=== PATIENT | female | born 1985 | race Hispanic/Latino ===

== ENCOUNTER 2018-01-12 18:06 | Emergency (ER) | payer BC ==
[2018-01-12] MEDS ORDERED: Ondansetron HCl/PF 4 MG/2 ML Vial ONE (19:11)
[2018-01-12 19:19] LABS: #Basophils 0.1 thou/uL (0.0-0.2); #Eosinphils 0.2 thou/uL (0.0-0.7); #Lymphocytes 2.1 thou/uL (1.20-3.40); #Monocytes 0.6 thou/uL (0.11-0.59); #Neutrophils 9.6 thou/uL (1.40-6.50); %Basophils 0.5 % (0.0-1.0); %Eosinophils 1.5 % (0.0-10.0); %Lymphocytes 16.8 % (21.0-51.0); %Monocytes 4.5 % (0.0-10.0); %Neutrophils 76.7 % (42.0-75.0); Mean Corpuscular HGB CONC 33.9 g/dL (32.0-36.0); Mean Corpuscular Hemoglobin 29.4 pg (27.0-31.0); Mean Corpuscular Volume 86.8 fL (78.0-98.0); Mean Platelet Volume 10.3 fL (7.4-10.4); Platelet Count 217 thou/uL (130-400); RBC Distribution Width 12.8 % (11.5-14.5); Red Blood Cell (RBC) Count 4.75 mill/uL (4.20-5.40); White Blood Cell (WBC) Count 12.5 thou/uL (4.8-10.8)
[2018-01-12 19:56] LABS: ALT (SGPT) 49 U/L (8-55); AST (SGOT) 78 U/L (5-34); Albumin 4.1 g/dL (3.5-5.0); Alkaline Phosphatase 81 U/L (40-150); Anion Gap 16 mmol/L (10-20); BUN (Urea Nitrogen) 15 mg/dL (7.0-18.7); Bilirubin, Total 0.6 mg/dL (0.2-1.2); Calc. Creatinine Clearance 0 mL/min (70-130); Calcium 9.6 mg/dL (7.8-10.44); Carbon Dioxide 16 mmol/L (22-29); Chloride 111 mmol/L (98-107); Estimated GFR-MDRD Greater than 90; Globulin 3.6 g/dL (2.4-3.5); Glucose 86 mg/dL (70-105); Potassium 4.8 mmol/L (3.5-5.1); Protein, Total 7.8 g/dL (6.0-8.3); Sodium 138 mmol/L (136-145)
--- NOTE | 2018-01-12 20:33 | ULT ---
ULTRASOUND GALLBLADDER RIGHT UPPER QUADRANT: HISTORY: Abdominal pain. COMPARISON: None. TECHNIQUE: Real-time, ugardado-scale, and color evaluation of the abdomen was performed. FINDINGS: The pancreas is not well seen. Hepatic echotexture is mildly increased. A gallstone is present within the gallbladder. No pericholecystic fluid. Gallbladder wall thickness is normal. The common bile duct is dilated to 9 mm. The right kidney measures 10.5 x 4.2 x 5.5 cm. IMPRESSION: Dilated common bile duct with cholelithiasis. Distal obstructing calculus is definitely a possibilit y. ERCP or MRCP recommended. POS: [facility]
== END 2018-01-12 21:42 | disposition home or self-care (01) ==
LOC: ERS 18:06
DX: K80.50 Calculus of bile duct without cholangitis or cholecystitis without obstruction (principal)
CPT/HCPCS: 76705; 80053; 83690; 85025; 96374; 96375; J2270; J2405

== ENCOUNTER 2018-01-15 00:56 | Inpatient (IN) | payer BC ==
[2018-01-15] MEDS ORDERED: Ondansetron HCl/PF 4 MG/2 ML Vial ONE ×2 (01:48→10:02)
[2018-01-15] MEDS ORDERED: Morphine 4 MG/ML VIAL ONE (01:48)
[2018-01-15 01:55] LABS: #Eosinphils 0.2 thou/uL (0.0-0.7); #Lymphocytes 1.7 thou/uL (1.20-3.40); #Monocytes 0.4 thou/uL (0.11-0.59); #Neutrophils 4.5 thou/uL (1.40-6.50); %Basophils 0.5 % (0.0-1.0); %Eosinophils 3.3 % (0.0-10.0); %Lymphocytes 25.1 % (21.0-51.0); %Monocytes 5.4 % (0.0-10.0); %Neutrophils 65.7 % (42.0-75.0); Hemoglobin 14.3 g/dL (12.0-16.0); Mean Corpuscular HGB CONC 32.9 g/dL (32.0-36.0); Mean Corpuscular Volume 88.2 fL (78.0-98.0); Mean Platelet Volume 9.4 fL (7.4-10.4); Platelet Count 199 thou/uL (130-400); RBC Distribution Width 12.5 % (11.5-14.5); Red Blood Cell (RBC) Count 4.92 mill/uL (4.20-5.40); White Blood Cell (WBC) Count 6.8 thou/uL (4.8-10.8)
[2018-01-15 02:15] LABS: BHCG - Serum Negative (NEGATIVE); Pregs Control Background? CLEAR/WHITE (CLR/WHITE); Pregs Control Bar Appear? YES (CONTROL BAR)
[2018-01-15 02:26] LABS: ALT (SGPT) 303 U/L (8-55); AST (SGOT) 196 U/L (5-34); Albumin 4.2 g/dL (3.5-5.0); Alkaline Phosphatase 243 U/L (40-150); Anion Gap 12 mmol/L (10-20); BUN (Urea Nitrogen) 9 mg/dL (7.0-18.7); Bilirubin, Total 2.8 mg/dL (0.2-1.2); Calc. Creatinine Clearance 0 mL/min (70-130); Calcium 9.4 mg/dL (7.8-10.44); Carbon Dioxide 24 mmol/L (22-29); Chloride 105 mmol/L (98-107); Estimated GFR-MDRD Greater than 90; Globulin 3.4 g/dL (2.4-3.5); Glucose 104 mg/dL (70-105); Lipase 15 U/L (8-78); Potassium 3.7 mmol/L (3.5-5.1); Protein, Total 7.6 g/dL (6.0-8.3); Sodium 137 mmol/L (136-145)
[2018-01-15 03:09] LABS: Bilirubin Small (Negative); Blood, Urine Negative (Negative); Clarity CLOUDY (Clear); Glucose, Urine (Dipstick) Negative (Negative); Leukocyte Moderate (Negative); Nitrite Negative (Negative); Protein, Urine (Dipstick) Negative (Neg-Trace); Specific Gravity, Urine 1.015 (1.002-1.036); pH, Urine 6.5 (5.0-9.0)
[2018-01-15 03:11] LABS: Bacteria/HPF 1+ HPF (None Seen); Hyaline Casts/LPF 4-6 HYALINE CAST LPF (0-3 Hyaline); Pathc Cast-AUWi Flag 1.45 (0-2.49); RBC/HPF 0-3 HPF (0-3)
[2018-01-15] MEDS ORDERED: MEROPENEM 1 GM/50 ML 1 GM in Premix Bag 1 BAG IVPB SCH ×2 (04:00→12:00)
[2018-01-15] MEDS ORDERED: Morphine 4 MG/ML VIAL SLOW IVP PRN ×2 (05:09→16:54)
[2018-01-15] MEDS ORDERED: Ondansetron ODT 4 MG TAB SL PRN (05:09)
[2018-01-15] MEDS ORDERED: Ondansetron HCl/PF 4 MG/2 ML Vial IVP PRN ×2 (05:09→15:28)
[2018-01-15 05:12] VITALS: BMI 39.8
[2018-01-15] MEDS ORDERED: D5 1/2 NS w/20 mEq KCL 1,000 ML IV SCH (05:15)
[2018-01-15 08:06] LABS: ALT (SGPT) 300 U/L (8-55); AST (SGOT) 193 U/L (5-34); Albumin 4.1 g/dL (3.5-5.0); Alkaline Phosphatase 241 U/L (40-150); Bilirubin, Total 2.8 mg/dL (0.2-1.2); Protein, Total 7.6 g/dL (6.0-8.3)
--- NOTE | 2018-01-15 08:28 | ULT ---
PRELIMINARY REPORT/[facility]/EMERGENCY AFTER HOURS PROCEDURE: EXAM: US Abdomen Limited, Right Upper Quadrant CLINICAL HISTORY: 32 years old, female; Pain and signs and symptoms; Nausea; Abdominal pain; Localized; Right upper nicole drant (ruq); Patient HX: Ruq pain worse today; TECHNIQUE: Real-time ultrasound of the right upper quadrant with image documentation. COMPARISON: No relevant prior studies available. FINDINGS: Several shadowing gallstones within the gallbladder. There also appears to be some biliary sludge in the gallbladder. The gallbladder appears mildly distended, transverse diameter up to about 4 cm. Gallbladder wall thickness upper range of normal, approximately 3 mm. No definite pericholecystic fluid. Technologist states patient is tender over the gallbladder region during scanning. Moderate biliary tree dilation, with common duct measuring up to 13-14 mm. No visible common duct stone by ultrasound. Slight increased echogenicity of the liver may indicate fatty infiltration. Otherwise unremarkable liver, no focal abnormality. Visible pancreas unremarkable. Images of the right kidney show no hydronephrosis. IMPRESSION: Cholelithiasis, please see additional details above. Moderate biliary tree dilation, with common duct measuring up to 13-14 mm. Other findings discussed above. Thank you for allowing us to participate in the care of your patient. Dictated and Authenticated by: Norberto Hewitt MD 01/15/2018 2:29 AM Central Time ([place] & [place]) FINAL REPORT RIGHT UPPER QUADRANT GALLBLADDER ULTRASOUND: HISTORY: Abdominal pain. COMPARISON: Ultrasound from 01/12/2018. TECHNIQUE: Real-time, guardado-scale, and color evaluation of the abdomen was performed. FINDINGS: The pancreas is not well seen. Mildly increased hepatic echotexture. The common bile duct is dilated over a centimeter, increased from the comparison examination. The right kidney measures 11.4 x 4.6 x 4.4 cm. There is cholelithiasis. Gallbladder wall thickness is at the upper limits of normal. The gallbladder, however, is distended. IMPRESSION: Dilated common bile duct, progressive from the comparison examination, concerning for a distal obstru ctive process. ERCP or MRCP recommended. Findings and impression are concordant with the preliminary report by Tameka. POS: [facility]
--- NOTE | 2018-01-15 09:46 | HP ---
CHIEF COMPLAINT: Right upper quadrant pain. HISTORY OF PRESENT ILLNESS: This is a 32-year-old female who since Saturday has been experiencing righ t upper quadrant pain, radiating to back, associated with nausea, no vomiting. She had a similar epi sode a month ago. She denies dark urine, no fever. She says she is feeling better this morning. PAST MEDICAL HISTORY: Obesity. PAST SURGICAL HISTORY: None. MEDICATIONS: None. ALLERGIES: No known drug allergies. SOCIAL HISTORY: She is single. She works at [employer]. No tobacco, social alcohol. FAMILY HISTORY: Mother of kidney cancer. PHYSICAL EXAMINATION: VITAL SIGNS: Temperature 96, pulse 58, blood pressure 114/79. GENERAL: She is awake, alert, does not appear to be in any distress. HEENT: No obvious jaundice. LUNGS: Clear. HEART: Regular rate and rhythm. ABDOMEN: Obese, soft, tender in the right upper quadrant to deep palpation. EXTREMITIES: Unremarkable. LABORATORY AND X-RAY FINDINGS: White count 6.8, H&H 14 and 43, platelet count 199. Electrolytes are fine. Total bilirubin is elevated at 2.8, AST of 196, ALT of 303, alkaline phosphatase 243. HCG ne gative. Ultrasound shows some mild wall thickening, some gallstones and a sonographic Prasad. ASSESSMENT: Acute cholecystitis with possible choledocholithiasis. PLAN: Repeat liver functions. If they are coming down recommend laparoscopic cholecystectomy. If t hey are going up recommend GI consult.
[2018-01-15] MEDS ORDERED: PROPOFOL 200 MG/20 ML VIAL ONE (10:02)
[2018-01-15] MEDS ORDERED: Dexamethasone 20 MG/5 ML VIAL ONE (10:02)
[2018-01-15] MEDS ORDERED: Ketorolac Tromethamine 30 MG/ML VIAL ONE (10:02)
[2018-01-15] MEDS ORDERED: Glycopyrrolate 0.2 MG/ML 5 ML SYRINGE ONE (10:02)
--- NOTE | 2018-01-15 13:41 | PQF ---
DATE: 01-15-18 ATTN: DR. ANTHONY SAAB Please exercise your independent, professional judgment in responding to the clarification form. Clinical indicators are provided on the bottom of this form for your review Please check appropriate box(s): [ ] UTI [ x] Contaminated urine specimen without UTI [ ] Other diagnosis [ ] Unable to determine In addition, please specify: Present on Admission (POA): [x ] Yes [ ] No [ ] Unable to determine For continuity of documentation, please document condition throughout progress notes and discharge summary. Thank You. CLINICAL INDICATORS - SIGNS / SYMPTOMS / LABS URINE: 01-15-18: URINE BILIRUBIN: SMALL H URINE UROBILINOGEN: 2.0 H UR LEUKOCYTE ESTERASE: MODERATE H URINE WBC: 7-10 H UR SQUAMOUS EPITH CELLS: 7-10 H URINE BACTERIA: 1+ H TEMP: ER: 99.0 RISK FACTORS: ER: ABDOMEN TENDER, R SIDED ABDOMINAL PAIN RADIATING TO HER BACK TREATMENT: ER: MEROPENEM IV, IVF (This form is maintained as a part of the permanent medical record) 2014 [email or web address], [email or web address]. All Rights Reserved ROSA [email or web address] Office: [phone] [email or web address]
[2018-01-15] MEDS ORDERED: Sodium Chloride 0.9% 0 ML ONE ×2 (13:44→13:47)
[2018-01-15] MEDS ORDERED: Sodium Chloride 0.9% 10 ML ONE (13:45)
--- NOTE | 2018-01-15 13:57 | CON ---
DATE OF CONSULTATION: 01/15/2018 REASON FOR CONSULTATION: Possible choledocholithiasis. HISTORY: Mrs. Castillo is a 32-year-old female who developed severe upper abdominal pain for the last 3 days. The patient presented to the ER 2 days ago with ultrasound demonstrating cholelithiasis. At t hat time her LFTs were fairly unremarkable. Common bile duct measured 9 mm on ultrasound. The patie nt represented back to the ER with worsening of pain. At this time, her LFTs were elevated. The pat ient denies any jaundice or dark urine. She is otherwise healthy without any antecedent GI problem o r history. PAST MEDICAL HISTORY: None. PAST SURGICAL HISTORY: None. HOME MEDICATIONS: No prescription medications. ALLERGIES: None. SOCIAL HISTORY: The patient is single, has 2 children. No tobacco or alcohol usage. FAMILY HISTORY: Negative for any known GI problem, liver disease, GI malignancy. REVIEW OF SYSTEMS: Essentially negative all 10-point review of systems. PHYSICAL EXAMINATION: VITAL SIGNS: Temperature is 98.3, blood pressure 115/77, pulse of 53. GENERAL: She is alert, conversant, in no distress. HEENT: Shows anicteric sclerae. Oropharynx clear. NECK: Supple. CARDIOVASCULAR: Shows normal S1, S2 regular rate and rhythm. CHEST: Shows normal breath sounds. ABDOMEN: Soft, protuberant, mildly tender in the medial right upper quadrant, but no guarding, tense rebound. She has active bowel sounds. No bruit. EXTREMITIES: Shows no edema. LABORATORY DATA: WBC 6.8, hemoglobin 14.3, platelet count of 199. Electrolytes within normal range, bilirubin 2.8, AST 196, ALT 303, alkaline phosphatase 243. ASSESSMENT: 1. Symptomatic cholelithiasis. 2. Possible choledocholithiasis with elevation of liver function tests and common duct measured 9 mm on ultrasound. RECOMMENDATIONS: Proceed with ERCP with possible sphincterotomy and stone extraction prior to cholec ystectomy. Indication including risks not limited to bleeding, perforation, and pancreatitis were re viewed with Ms. Castillo. All questions answered. We will proceed. PLAN: Proceed with ERCP as above.
[2018-01-15] MEDS ORDERED: Iothalamate Meglumine 60% 50 ML VIAL FS ONE (14:28)
[2018-01-15] MEDS ORDERED: Indomethacin 50 MG SUPP ONE (14:28)
[2018-01-15] MEDS ORDERED: Fentanyl 100 MCG/2 ML VIAL ONE (14:37)
[2018-01-15] MEDS ORDERED: SUGAMMADEX SODIUM 200 MG/2 ML VIAL ONE (15:21)
[2018-01-15] MEDS ORDERED: Promethazine HCl 25 MG/ML VIAL SLOW IVP PRN (15:28)
[2018-01-15] MEDS ORDERED: Promethazine HCl 25 MG/ML VIAL IM PRN (15:28)
--- NOTE | 2018-01-15 16:39 | RAD ---
FLUOROSCOPY FOR ERCP: Date: 01/15/18 COMPARISON: None. EXPOSURE: Not provided. FINDINGS/IMPRESSION: Retrograde ERCP was performed. Total of 5 images demonstrate contrast opacifying what appears to be n ormal caliber common duct. No significant reflux of contrast into the intrahepatic biliary system. Fi lling defect on single image likely represents balloon. POS: [facility]
[2018-01-15] MEDS ORDERED: Ondansetron HCl/PF 4 MG/2 ML Vial SLOW IVP PRN (16:55)
[2018-01-15] MEDS: MEROPENEM 1 GM/50 ML 1 GM in Premix Bag 1 BAG IVPB SCH (20:41)
--- NOTE | 2018-01-15 22:11 | OP ---
DATE OF PROCEDURE: 01/15/2018 PROCEDURE: Endoscopic retrograde cholangiopancreatography with sphincterotomy and stone extraction. PHYSICIAN: Kendall Bear M.D. PREMEDICATION: Given per Anesthesiology Department. PREPROCEDURE DIAGNOSES: 1. Choledocholithiasis. 2. Cholelithiasis. POSTPROCEDURE DIAGNOSIS: Choledocholithiasis, single stone extracted. PROCEDURE IN DETAIL: A written consent was obtained prior to procedure. After adequate sedation, si de view endoscope was advanced down the stomach through the pylorus into duodenum. The ampulla was v isualized and appeared normal. Selective cannulation was performed using a papillotome. The common duct was intubated. Injection of contrast showed a proximal dilation of the duct to approximately 12 mm. The distal duct tapered, but still dilated to approximately 8 mm towards the ampulla. A single oval filling defect was seen. A papillotomy was performed at 12 o'clock position with good hemostas is. A 9-12 mm balloon was then used to extract a single cholesterol stone. Occlusive cholangiogram was then performed and appeared normal. The catheter was removed. There was prompt excretion of con trast. The instrument was then fully removed. The patient tolerated the procedure well without any complication. ASSESSMENT: Choledocholithiasis, single common bile duct stone extracted after sphincterotomy. RECOMMENDATIONS: Proceed with cholecystectomy.
[2018-01-16] MEDS: MEROPENEM 1 GM/50 ML 1 GM in Premix Bag 1 BAG IVPB SCH ×3 (03:27→20:29)
[2018-01-16] MEDS ORDERED: Bupivacaine/Epinephrine 0.25% 30 ML VIAL ONE (07:32)
[2018-01-16] MEDS ORDERED: Midazolam HCl 2 mg/2 ml Vial ONE (08:05)
[2018-01-16] MEDS ORDERED: HYDROmorphone 2 MG/ML VIAL ONE (08:05)
[2018-01-16] MEDS ORDERED: Fentanyl 100 MCG/2 ML VIAL ONE ×3 (08:05→17:27)
[2018-01-16] MEDS ORDERED: diphenhydrAMINE 25 MG CAP PO PRN (08:51)
[2018-01-16] MEDS ORDERED: Naloxone HCl 0.4 mg/ml Vial IV PRN (08:51)
[2018-01-16] MEDS ORDERED: diphenhydrAMINE 50 MG/ML VIAL IVP PRN (08:51)
[2018-01-16] MEDS ORDERED: Meperidine HCl/PF 25 MG/ML VIAL SLOW IVP PRN (08:51)
[2018-01-16] MEDS ORDERED: Promethazine HCl 25 MG/ML VIAL SLOW IVP PRN (08:51)
[2018-01-16] MEDS ORDERED: Ondansetron HCl/PF 4 MG/2 ML Vial IVP PRN ×3 (08:51→09:23)
[2018-01-16] MEDS ORDERED: Promethazine HCl 25 MG/ML VIAL IM PRN ×3 (08:51→09:23)
[2018-01-16] MEDS ORDERED: Morphine Sulfate 2 MG/ML SYRINGE SLOW IVP PRN (08:51)
[2018-01-16] MEDS ORDERED: Zolpidem Tartrate 5 MG TAB PO PRN (08:51)
[2018-01-16] MEDS ORDERED: diphenhydrAMINE 50 MG/ML VIAL IM PRN (08:51)
[2018-01-16] MEDS ORDERED: Communication Order-Pharmacy FS SCH (09:00)
[2018-01-16] MEDS ORDERED: Dextrose 5% in Water 1,000 ML IV PRN (09:23)
[2018-01-16] MEDS ORDERED: hydrALAZINE 20 MG/ML VIAL SLOW IVP PRN (09:23)
[2018-01-16] MEDS ORDERED: Calcium Carbonate 500 MG ChewTAB PO PRN (09:23)
[2018-01-16] MEDS ORDERED: Dextrose 50% Abboject 50 ML SYRINGE SLOW IVP PRN (09:23)
[2018-01-16] MEDS ORDERED: HYDROcodone/Acetaminophen 10/325 mg Tablet PO PRN ×3 (09:23→10:29)
[2018-01-16] MEDS ORDERED: Mag-Al 1200 mg/1200 mg/30 ML UDCUP PO PRN (09:23)
[2018-01-16] MEDS ORDERED: Morphine 4 MG/ML VIAL SLOW IVP PRN (09:23)
--- NOTE | 2018-01-16 09:48 | OP ---
DATE OF PROCEDURE: 01/16/2018 PREOPERATIVE DIAGNOSIS: Choledocholithiasis with symptomatic cholelithiasis. SURGEON: Isak Harkins M.D. PROCEDURE PERFORMED: Laparoscopic cholecystectomy. INDICATIONS: A 32-year-old female who has been having episodic right upper quadrant pain. This cinthya me very severe. She had elevated liver function tests. She underwent an ERCP and stone extraction y day. FINDINGS: Minimal inflammation very long gallbladder. DESCRIPTION OF PROCEDURE: After informed consent was obtained, the patient was taken to the operatin g room and given general endotracheal anesthesia, placed in the supine position. The abdomen was pre pped and draped in usual fashion. Local anesthesia infiltrated subcutaneously and deep. A subumbili rodolfo incision was performed. Subcu divided sharply. The fascia grasped and two stay sutures of 0 Jacob ryl placed each side of midline. Midline incised. Digital palpation revealed no local adhesions. A blunt 10-12 mm trocar inserted. Pneumoperitoneum was created to a pressure of 15 mmHg. Zero degree laparoscope inserted under direct vision, three 5 mm ports placed subcostally. Gallbladder grasped and advanced superiorly. There were some adhesions to the gallbladder. These were taken down sharpl y. The peritoneum opened to allow dissection of the cystic duct artery and critical view. The duct and artery triply ligated with Hemoclips and divided. The gallbladder was removed from its fossa uti lizing electrocautery, removed from the abdomen through the umbilical port. Hemostasis was assured. Trocars and retractors removed. The fascia closed with interrupted 0 Vicryl suture. The skin close d with interrupted 4-0 Rapide. Steri-Strips applied. Sterile bandage applied. The patient tolerate d the procedure well and was transferred to recovery in good condition. Sponge and needle count veri fied correct x2.
[2018-01-16] MEDS ORDERED: Morphine 4 MG/ML VIAL ONE (10:02)
[2018-01-16] MEDS ORDERED: Ketorolac Tromethamine 30 MG/ML VIAL ONE (10:27)
[2018-01-16] MEDS ORDERED: PROPOFOL 200 MG/20 ML VIAL ONE (10:27)
[2018-01-16] MEDS ORDERED: Ondansetron HCl/PF 4 MG/2 ML Vial ONE (10:27)
[2018-01-16] MEDS ORDERED: Dexamethasone 20 MG/5 ML VIAL ONE (10:27)
[2018-01-16] MEDS ORDERED: Lidocaine 1% PF 5 ML VIAL ONE (10:27)
[2018-01-16] MEDS ORDERED: Glycopyrrolate 0.2 MG/ML 5 ML SYRINGE ONE (10:27)
[2018-01-16] MEDS: Ketorolac Tromethamine 30 MG/ML VIAL IVP SCH ×3 (12:01→23:31)
[2018-01-16] MEDS: D5 1/2 NS w/20 mEq KCL 1,000 ML IV SCH ×3 (12:02→23:32)
[2018-01-16] MEDS: cefOXitin 2 GM in Sodium Chloride 0.9% 100 ML IVPB SCH ×2 (13:39→21:17)
[2018-01-16] MEDS: Famotidine/PF 20 mg/2ml Vial SLOW IVP SCH (20:38)
[2018-01-16] MEDS: Famotidine 20 MG TAB PO SCH (20:38)
[2018-01-17 05:48] LABS: ALT (SGPT) 152 U/L (8-55); AST (SGOT) 44 U/L (5-34); Albumin 3.6 g/dL (3.5-5.0); Alkaline Phosphatase 153 U/L (40-150); Anion Gap 10 mmol/L (10-20); BUN (Urea Nitrogen) 8 mg/dL (7.0-18.7); Bilirubin, Total 0.5 mg/dL (0.2-1.2); Calc. Creatinine Clearance 212 mL/min (70-130); Carbon Dioxide 24 mmol/L (22-29); Chloride 110 mmol/L (98-107); Estimated GFR-MDRD Greater than 90; Glucose 117 mg/dL (70-105); Potassium 4.2 mmol/L (3.5-5.1); Protein, Total 6.6 g/dL (6.0-8.3); Sodium 140 mmol/L (136-145)
[2018-01-17 06:05] LABS: Band 1 % (5-11); Eosinophils 1 % (0-10); Hemoglobin 12.8 g/dL (12.0-16.0); Lymphocytes 20 % (21-51); MDiff Complete? YES; Mean Corpuscular HGB CONC 32.9 g/dL (32.0-36.0); Mean Corpuscular Hemoglobin 29.3 pg (27.0-31.0); Mean Platelet Volume 10.6 fL (7.4-10.4); Monocytes 5 % (0-10); Neutrophil 73 % (42-75); PLT Morphology Comment Appears Adequate; Platelet Count 187 thou/uL (130-400); RBC Distribution Width 12.8 % (11.5-14.5); Red Blood Cell (RBC) Count 4.36 mill/uL (4.20-5.40); White Blood Cell (WBC) Count 9.9 thou/uL (4.8-10.8)
[2018-01-17] MEDS: cefOXitin 2 GM in Sodium Chloride 0.9% 100 ML IVPB SCH (06:09)
[2018-01-17] MEDS: Ketorolac Tromethamine 30 MG/ML VIAL IVP SCH ×3 (06:10→12:38)
[2018-01-17] MEDS: MEROPENEM 1 GM/50 ML 1 GM in Premix Bag 1 BAG IVPB SCH ×3 (06:10→12:39)
[2018-01-17] MEDS: Famotidine 20 MG TAB PO SCH (08:43)
[2018-01-17] MEDS: Famotidine/PF 20 mg/2ml Vial SLOW IVP SCH (08:43)
[2018-01-17] MEDS: D5 1/2 NS w/20 mEq KCL 1,000 ML IV SCH (08:44)
[2018-01-17] MEDS ORDERED: Enoxaparin Sodium 40 MG/0.4 ML SYRINGE SC SCH (09:00)
[2018-01-17 12:47] VITALS: BP 114/76; TEMP 98.4
== END 2018-01-17 13:52 | disposition home or self-care (01) | DRG 410 ==
LOC: ERS 00:56 → SURG B 03:00
PROVIDERS: ADMIT Surgery; ATTEND Surgery
PROC: 0FC48ZZ Extirpation of Matter from Gallbladder, Via Natural or Artificial Opening Endoscopic (ICD-10-PCS; principal; 2018-01-15)
PROC: 0FT44ZZ Resection of Gallbladder, Percutaneous Endoscopic Approach (ICD-10-PCS; 2018-01-16)
DX: K80.42 Calculus of bile duct with acute cholecystitis without obstruction (principal); E66.9 Obesity, unspecified; Z68.39 Body mass index [BMI] 39.0-39.9, adult
CPT/HCPCS: 36415; 74330; 76705; 80053; 81003; 81015; 83690; 84703; 85025; 87086; 88304; 96361; 96374; 96375; J0694; J1100; J1170; J1885; J2185; J2250; J2270; J2405; J2704; J3010; J7050; Q9961; S0028

== ENCOUNTER 2019-06-23 15:32 | Day surgery (SDC) | payer BC ==
[2019-06-23 16:20] VITALS: BMI 42.9
[2019-06-23] MEDS ORDERED: hydrALAZINE 20 MG/ML VIAL SLOW IVP PRN (16:47)
--- NOTE | 2019-06-23 16:51 | PDOC.LDHP ---
Labor and Delivery H&P Chief complaint: abdominal pain HPI: 33 y/o at 34w0d, patient of Dr. Ray, presents with abdominal pain since yesterday around 3-4pm. Patient states she started having sharp pains and cramping every 7-8 mins but improved last night so she waited to come in. Patient felt like her pain was more like contractions this morning but spread out. Denies VB, LOF but does have some thick, white discharge for the last few days. Denies odor or itching. Also having some frequency and urgency but denies dysuria. +FM. ROS neg for HEENT, cv, pulm, gi, gu, neuro, psych, skin, musculoskeletal or constitutional symptoms other than mentioned above. OB History Details: 2 prior term SVDs, last delivery in 2005. Current complications: none Past Medical History: Obesity Current medications: pre- vitamins, other (Aspirin, tylenol) Previous surgical history: none Allergies/Adverse Reactions: Allergies Allergy/AdvReac Type Severity Reaction Status Date / Time No Known Allergies Allergy Verified 06/23/19 16:17 Social history: none - Physical Exam Vital signs reviewed and normal: yes General: NAD, resting Abdomen: gravid Extremeties: trace edema FHT: category 1 [place] contractions every: None - Vaginal Exam cm dilated: 0 Effacement: 0% Station: -3 - Assessment 33 y/o at 34w0d with no e/o PTL. No longer feeling pain. VP3 pending, UA negative. status reassuring with reactive NST. - Plan -: D/c home with precautions. Advised to keep all appointments, stay well hydrated. Next appointment next week. Will call if VP3 results indicate need for treatment.
[2019-06-23 17:11] LABS: Bacteria/HPF None Seen HPF (None Seen); Bilirubin Negative (Negative); Blood, Urine Negative (Negative); Clarity Clear (Clear); Glucose, Urine (Dipstick) Normal (Negative); Leukocyte Negative Leu/uL (Negative); Mucous/LPF Rare LPF (<2+); Nitrite Negative (Negative); Protein, Urine (Dipstick) 10 mg/dL (Neg-Trace); RBC/HPF 0-3 HPF (0-3); Squamous Epithelial 0-3 HPF (0-3); Urobilinogen Normal mg/dL (Less than 2); WBC/HPF 0-3 HPF (0-3)
[2019-06-23 17:13] LABS: Urine Culture Reflex No No
--- NOTE | 2019-06-24 14:00 | PDOC.EVN ---
Event Note - Event Note Event Note: VP3 + for gardernella. Metronidazole 500mg po bid #14 sent to pharmacy on record. Pt called from pharmacy.
== END 2019-06-23 17:30 | disposition home or self-care (01) ==
LOC: L&D/OP 15:32
PROVIDERS: ATTEND Obstetrics & Gynecology
DX: O99.89 Other specified diseases and conditions complicating pregnancy, childbirth and the puerperium (principal); R10.9 Unspecified abdominal pain; O23.593 Infection of other part of genital tract in pregnancy, third trimester; B96.89 Other specified bacterial agents as the cause of diseases classified elsewhere; O99.213 Obesity complicating pregnancy, third trimester; E66.9 Obesity, unspecified; Z3A.34 34 weeks gestation of pregnancy; Z79.82 Long term (current) use of aspirin
CPT/HCPCS: 81001; 87480; 87510; 87660; 99283; A4353

== ENCOUNTER 2019-07-07 11:57 | Day surgery (SDC) | payer BC ==
[2019-07-07] MEDS ORDERED: hydrALAZINE 20 MG/ML VIAL SLOW IVP PRN (12:02)
[2019-07-07 12:26] VITALS: BP 125/82; TEMP 99
[2019-07-07 12:27] VITALS: BMI 43.9
[2019-07-07 12:46] LABS: Hemoglobin 12.1 g/dL (12.0-16.0); Mean Corpuscular HGB CONC 34.7 g/dL (32.0-36.0); Mean Corpuscular Hemoglobin 28.8 pg (27.0-31.0); Mean Corpuscular Volume 82.9 fL (78.0-98.0); Platelet Count 188 thou/uL (130-400); RBC Distribution Width 13.1 % (11.5-14.5); White Blood Cell (WBC) Count 9.5 thou/uL (4.8-10.8)
[2019-07-07 12:51] LABS: Band 5 % (5-11); Lymphocytes 19 % (21-51); MDiff Complete? YES; Metamyelocyte 1 % (0-0); Monocytes 2 % (0-10); Neutrophil 73 % (42-75); Platelet Morphology Comment Appears Adequate; Polychromasia SLIGHT = 2-3 cells (100X) (0-2/hpf)
[2019-07-07 13:04] LABS: ALT (SGPT) 10 U/L (8-55); AST (SGOT) 13 U/L (5-34); Albumin 3.2 g/dL (3.5-5.0); Alkaline Phosphatase 140 U/L (40-110); Anion Gap 13 mmol/L (10-20); BUN (Urea Nitrogen) 5 mg/dL (7.0-18.7); Bilirubin, Total 0.2 mg/dL (0.2-1.2); Calc. Creatinine Clearance 290 mL/min (70-130); Calcium 8.7 mg/dL (7.8-10.44); Carbon Dioxide 17 mmol/L (22-29); Chloride 110 mmol/L (98-107); Estimated GFR-MDRD Greater than 90; Globulin 3.2 g/dL (2.4-3.5); Glucose 79 mg/dL (70-105); Potassium 3.9 mmol/L (3.5-5.1); Protein, Total 6.4 g/dL (6.0-8.3); Sodium 136 mmol/L (136-145)
--- NOTE | 2019-07-07 14:29 | PDOC.LDHP ---
Labor and Delivery H&P Chief complaint: other (elevated BPs) HPI: 33 y/o at 36w0d, patient of Dr. Ray, presents for elevated BPs and shortness of breath. Patient reports she was winded earlier but that has resolved but BPs were elevated at home and was told to come in. Denies VB, LOF , ctx, GABRIEL, vision changes or RUQ pain. +FM. ROS neg for HEENT, CV, pulm, gi, gu, neuro, psych, skin, musculoskeletal or constitutional symptoms other than mentioned above. OB History Details: 2 prior SVDs Current complications: none Past Medical History: Obesity Current medications: pre- vitamins, other (aspirin, tylenol) Allergies/Adverse Reactions: Allergies Allergy/AdvReac Type Severity Reaction Status Date / Time No Known Allergies Allergy Verified 07/07/19 12:32 Social history: none - Physical Exam Vital signs reviewed and normal: yes Abnormal vital signs: normal to mild range BPs General: NAD, resting Lungs: nonlabored breathing Abdomen: gravid Extremeties: no edema FHT: category 1 (140s, mod variability, + accels, no decels) [place] contractions every: occasional - Assessment 33 y/o at 36w0d with no e/o preeclampsia at this time. status reassuring with reactive NST. - Plan -: Next appointment scheduled for 07/15. Told patient to call prior to that, as Dr. Ray may have other plans 2/2 GHTN. D/c home with precautions.
== END 2019-07-07 14:01 | disposition home health service (06) ==
LOC: L&D/OP 11:57
PROVIDERS: ATTEND Obstetrics & Gynecology
DX: O13.3 Gestational [pregnancy-induced] hypertension without significant proteinuria, third trimester (principal); O99.213 Obesity complicating pregnancy, third trimester; E66.9 Obesity, unspecified; Z3A.36 36 weeks gestation of pregnancy
CPT/HCPCS: 36415; 59025; 80053; 82570; 84156; 85025; 99283

== ENCOUNTER 2019-07-14 05:30 | Inpatient (IN) | payer BC ==
[2019-07-14 06:12] VITALS: BMI 43.6
[2019-07-14] MEDS ORDERED: Penicillin G Potassium 5 MILL.UNITS in Sodium Chloride 0.9% 100 ML IVPB SCH (06:30)
[2019-07-14] MEDS ORDERED: HYDROcodone/Acetaminophen 5/325 mg Tablet PO PRN ×3 (06:42→21:52)
[2019-07-14] MEDS ORDERED: Lidocaine 1% (PF) 30 ML VIAL SC PRN (06:42)
[2019-07-14] MEDS ORDERED: hydrALAZINE 20 MG/ML VIAL SLOW IVP PRN ×2 (06:42→21:52)
[2019-07-14] MEDS ORDERED: Butorphanol Tartrate 1 MG/ML VIAL SLOW IVP PRN (06:42)
[2019-07-14] MEDS ORDERED: Promethazine HCl 25 MG/ML VIAL IM PRN ×2 (06:42→14:05)
[2019-07-14] MEDS ORDERED: Ondansetron PF 4 MG/2 ML Vial IVP PRN ×3 (06:42→21:52)
[2019-07-14] MEDS ORDERED: NS w/ Oxytocin 10 units 500 ML IV SCH ×2 (06:42)
[2019-07-14] MEDS ORDERED: Ibuprofen 800 MG TAB PO PRN (06:42)
[2019-07-14] MEDS ORDERED: Misoprostol 100 MCG TAB VAG SCH (07:00)
[2019-07-14 07:13] LABS: Hemoglobin 11.8 g/dL (12.0-16.0); Mean Corpuscular HGB CONC 34.6 g/dL (32.0-36.0); Mean Corpuscular Hemoglobin 28.3 pg (27.0-31.0); Mean Corpuscular Volume 81.6 fL (78.0-98.0); Mean Platelet Volume 9.7 fL (7.4-10.4); Platelet Count 191 thou/uL (130-400); Red Blood Cell (RBC) Count 4.18 mill/uL (4.20-5.40); White Blood Cell (WBC) Count 9.6 thou/uL (4.8-10.8)
[2019-07-14 07:21] LABS: ALT (SGPT) 8 U/L (8-55); AST (SGOT) 10 U/L (5-34); Albumin 3.4 g/dL (3.5-5.0); Alkaline Phosphatase 160 U/L (40-110); Anion Gap 16 mmol/L (10-20); BUN (Urea Nitrogen) 8 mg/dL (7.0-18.7); Bilirubin, Total 0.2 mg/dL (0.2-1.2); Calc. Creatinine Clearance 262 mL/min (70-130); Calcium 8.3 mg/dL (7.8-10.44); Carbon Dioxide 17 mmol/L (22-29); Chloride 107 mmol/L (98-107); Estimated GFR-MDRD Greater than 90; Globulin 2.9 g/dL (2.4-3.5); Glucose 136 mg/dL (70-105); Potassium 3.7 mmol/L (3.5-5.1); Protein, Total 6.3 g/dL (6.0-8.3); Sodium 136 mmol/L (136-145)
[2019-07-14 07:41] LABS: HBSAg Index 0.19 S/CO (0-0.99); Hep B Surf Ag Non-Reactive S/CO (NonReactive)
[2019-07-14 07:45] LABS: Syphilis Antibody Nonreactive (Nonreactive); Syphilis Antibody Index 0.03 S/CO (<1.00 Non-Reactive)
--- NOTE | 2019-07-14 11:39 | PDOC.LDPN ---
Labor & Delivery Progress Note - Subjective Subjective: comfortable - Objective Vital signs reviewed and normal: yes Abnormal vital signs: BP 140-150/80-90s General: NAD Uterine fundus: non tender Dilation: 2 Effacement: 50% Station: -2 FHT: category 1 AROM: clear fluid - Assessment (1) Gestational hypertension Code(s): O13.9 - GESTATIONAL HTN W/O SIGNIFICANT PROTEINURIA, UNSP TRIMESTER Current Visit: Yes Status: Acute (2) 37 weeks gestation of Code(s): Z3A.37 - 37 WEEKS GESTATION OF Current Visit: Yes Status : Acute Plan: continue plan of care -: pitocin started, sp AROM w clear fluid, discussed hydralazine and mag if needed for severe features
[2019-07-14] MEDS: Penicillin G 2.5 MILL.units 2.5 MILL.UNITS in Premix Bag 1 BAG IVPB SCH ×3 (11:49→18:43)
[2019-07-14] MEDS ORDERED: Fentanyl 4 mcg/Bup 0.1% Cadd 0 ML ONE (12:37)
[2019-07-14] MEDS ORDERED: Fentanyl 4 mcg/Bup 0.1% Cadd 100 ML ONE (12:41)
[2019-07-14] MEDS: Lactated Ringer's 1,000 ML IV SCH ×2 (14:01→23:29)
[2019-07-14] MEDS ORDERED: Lactated Ringer's 500 ML IV PRN (14:05)
[2019-07-14] MEDS ORDERED: Acetaminophen 325 MG TAB PO PRN (14:05)
[2019-07-14] MEDS ORDERED: EPHEDRINE 25 MG/5 ML SYRINGE SLOW IVP PRN (14:05)
[2019-07-14] MEDS ORDERED: diphenhydrAMINE 50 MG/ML VIAL IVP PRN (14:05)
[2019-07-14] MEDS ORDERED: Naloxone HCl 0.4 mg/ml Vial IVP PRN ×2 (14:05)
[2019-07-14] MEDS ORDERED: Fentanyl 4 mcg/Bupivacaine 0.1% Cassette 100 ML EPIDURAL SCH (14:15)
[2019-07-14] MEDS ORDERED: Communication Order-Pharmacy FS SCH (14:15)
[2019-07-14] MEDS ORDERED: Bupivacaine PF 0.5% 30 ML VIAL ONE (14:28)
[2019-07-14] MEDS ORDERED: Lidocaine 1% (PF) 30 ML VIAL ONE (19:25)
[2019-07-14] MEDS ORDERED: NS / Oxytocin 40 units/1000ml 1,000 ML ONE (19:25)
[2019-07-14] MEDS: NS / Oxytocin 40 units/1000ml 1,000 ML IV PRN ×2 (19:52→21:49)
--- NOTE | 2019-07-14 20:00 | PDOC.OPDEL ---
OB Operative/Delivery Note Delivery Dr/Surgeon: Cory Pre-Delivery Diagnosis: medically indicated induction (PIH) Procedure/Post Delivery Dx: spontaneous vaginal delivery Weeks gestation: 37 Anesthesia: epidural - Findings A Sex: female - 1 min: 8 - 5 min: 9 - Additional Findings/Plan Placenta delivered: spontaneous Repaired Obstetrical Laceration: 2nd degree Estimated blood loss: 150ml Post delivery plan: routine recovery
[2019-07-14] MEDS ORDERED: NS / Oxytocin 40 units/1000ml 1,000 ML IV SCH (21:52)
[2019-07-14] MEDS ORDERED: Benzocaine-Menthol 82.5 ML CAN TOP PRN (21:52)
[2019-07-14] MEDS ORDERED: Lanolin Ointment 7 GM TUBE TOP PRN (21:52)
[2019-07-14] MEDS ORDERED: Milk Of Magnesia 30 ML UDCUP PO PRN (21:52)
[2019-07-14] MEDS ORDERED: diphenhydrAMINE 25 MG CAP PO PRN (21:52)
[2019-07-14] MEDS ORDERED: Preparation H Ointment 57 gram tube RC PRN (21:52)
[2019-07-14] MEDS ORDERED: Bisacodyl 10 MG SUPP PR PRN (21:52)
[2019-07-14] MEDS ORDERED: Docusate Calcium (SURFAK) 240 MG CAP PO SCH (22:15)
[2019-07-15] MEDS: Ibuprofen 800 MG TAB PO SCH ×4 (00:06→21:34)
[2019-07-15] MEDS: HYDROcodone/Acetaminophen 5/325 mg Tablet PO PRN (02:36)
[2019-07-15] MEDS ORDERED: Adacel (T-DAP) 0.5 ML SYRINGE IM ONE (09:00)
[2019-07-15] MEDS: Prenatal Vitamin 1 TAB PO SCH (09:33)
[2019-07-15] MEDS: Ferrous Sulfate 325 MG TAB PO SCH ×2 (09:33→18:13)
[2019-07-15] MEDS: Docusate Calcium (SURFAK) 240 MG CAP PO SCH ×2 (09:33→21:34)
[2019-07-16] MEDS: HYDROcodone/Acetaminophen 5/325 mg Tablet PO PRN ×2 (00:36→12:48)
[2019-07-16] MEDS: Ibuprofen 800 MG TAB PO SCH ×2 (04:52→14:34)
[2019-07-16 08:10] VITALS: BP 125/88; TEMP 97.6
[2019-07-16] MEDS: Ferrous Sulfate 325 MG TAB PO SCH (09:30)
[2019-07-16] MEDS: Docusate Calcium (SURFAK) 240 MG CAP PO SCH (09:31)
[2019-07-16] MEDS: Prenatal Vitamin 1 TAB PO SCH (09:31)
--- NOTE | 2019-07-16 11:58 | PDOC.PP ---
Post Progress Note Post Day #: 2 Subjective: Doing well, BP WNL< no concerns PO intake tolerated: yes Flatus: yes Ambulation: yes Vital Signs (12 hours) Temp Pulse Resp BP Pulse Ox 07/16/19 08:09 97.6 F 74 20 125/88 99 07/16/19 04:50 97.5 F L 75 20 123/60 07/16/19 00:30 97.8 F 79 20 123/63 96 Weight Weight 254 lb - Physical Examination General: NAD Respiratory: non-labored breathing Abdominal: no distention Skin: no rash Psychiatric: A&Ox3, normal affect Result Diagrams: 07/14/19 06:54 07/14/19 06:54 Additional Labs: Post Labs Blood Type O POSITIVE 07/14/19 06:54 Hep Bs Antigen Non-Reactive S/CO (NonReactive) 07/14/19 06:54 (1) Gestational hypertension Code(s): O13.9 - GESTATIONAL HTN W/O SIGNIFICANT PROTEINURIA, UNSP TRIMESTER Status: Acute (2) 37 weeks gestation of Code(s): Z3A.37 - 37 WEEKS GESTATION OF Status: Acute - Assessment/Plan PPD2 doing well. Plan for DC today.
== END 2019-07-16 15:25 | disposition home or self-care (01) | DRG 807 ==
LOC: L&D 05:41 → 3SW 23:03
PROVIDERS: ADMIT Obstetrics & Gynecology; ATTEND Obstetrics & Gynecology
PROC: 10E0XZZ Delivery of Products of Conception, External Approach (ICD-10-PCS; principal; 2019-07-14)
PROC: 0KQM0ZZ Repair Perineum Muscle, Open Approach (ICD-10-PCS; 2019-07-14)
PROC: 10907ZC Drainage of Amniotic Fluid, Therapeutic from Products of Conception, Via Natural or Artificial Opening (ICD-10-PCS; 2019-07-14)
DX: O13.4 Gestational [pregnancy-induced] hypertension without significant proteinuria, complicating childbirth (principal); Z37.0 Single live birth; O99.824 Streptococcus B carrier state complicating childbirth; O70.1 Second degree perineal laceration during delivery; Z3A.37 37 weeks gestation of pregnancy
CPT/HCPCS: 51702; 80053; 85027; 86780; 86850; 86900; 86901; 87340; J2001; J2405; J2540; J2590; J3490; S0020